=== PATIENT | female | born 2000 | race Caucasian/White ===

== ENCOUNTER → 2018-05-27 | Outpatient (CLI) | payer BC ==
--- NOTE | 2018-05-27 09:59 | Diagnostic Imaging Report ---
INDICATION: Palpable fullness in the outer right breast. Sonographic interrogation of the area of palpable abnormality in the outer right breast was performed. No sonographic abnormality is seen. No solid or cystic mass is detected. IMPRESSION: BI-RADS category one No sonographic abnormality is identified. Continued close clinical and self breast exam is recommended to confirm stability of the palpable abnormality. ACR BI-RADS Category 0: Incomplete. (Needs additional imaging evaluation). Dictated by: Dictated on workstation # [id number]
== END ==
LOC: RAD 08:43
PROVIDERS: ATTEND Registered Nurse
DX: N63.10 Unspecified lump in the right breast, unspecified quadrant (principal)

== ENCOUNTER 2019-11-04 20:31 | Outpatient (CLI) | payer BC ==
[~2019-11-04] VITALS: Ht 170.2 cm; Wt 96.4 kg
--- NOTE | 2019-11-04 20:45 | NUR ---
BAMBI SOLER presented to unit via ambulatory from ED, accompanied by mother, with c/o DECREASED MOVEMENT. BAMBI SOLER weighed, gowned, voided, and to bed. EFHM and TOCO applied, VS taken. BAMBI SOLER oriented to bed controls, call light, TV, heat, and A/C controls. further asesments per this rn.
[2019-11-04 21:00] VITALS: BP 124/74
[2019-11-04 21:11] VITALS: BP 124/74
--- NOTE | 2019-11-04 21:30 | NUR ---
DISCHARGE PACKET GIVEN AND EXPLAINED UNDERSTANDING VOICED, NO SS DISTRESS, PT AMBULATORY OFF UNIT AT THIS TIME ACCOMPANIED BY MOTHER.
--- NOTE | 2019-11-05 08:13 | Physician Query-Final Dx ---
CLIFF ROBERSON 11/05/19 0813: Clinic Account Progress/Dx Physician Query: Please give diagnosis Please include # weeks gestation Date of Service Nov 04, 2019 at 20:31 DILIP GONZALEZ DO 11/05/19 0957: Clinic Account Progress/Dx DIAGNOSIS: Diagnosis 27 week GA Decreased movement; reassuring tracing CLIFF ROBERSON Nov 05, 2019 08:13 DILIP GONZALEZ DO Nov 05, 2019 09:57
== END 2019-11-04 21:30 | disposition home or self-care (01) ==
LOC: LDRP 20:31 → WSo 20:31
PROVIDERS: ATTEND Family Medicine
DX: O36.8121 Decreased fetal movements, second trimester, fetus 1 (principal); Z3A.27 27 weeks gestation of pregnancy
CPT/HCPCS: 99212

== ENCOUNTER 2019-12-28 21:03 | Outpatient (CLI) | payer BC ==
[~2019-12-28] VITALS: Ht 170.2 cm; Wt 101.2 kg
--- NOTE | 2019-12-28 21:10 | NUR ---
BAMBI SOLER presented to unit via from ED, accompanied by family, with c/o VAG BLEEDING 35 0/7 wks . BAMBI SOLER weighed, gowned, voided, and to bed. EFHM and TOCO applied, VS taken. BAMBI SOLER oriented to bed controls, call light, TV, heat, and A/C controls.
[2019-12-28 21:14] VITALS: BP 0/0
[2019-12-28 21:27] LABS: BILIRUBIN,URINE NEGATIVE (NEGATIVE); CLARITY,URINE TURBID; COLOR,URINE YELLOW; GLUCOSE, URINE (UA) NEGATIVE (NEGATIVE); KETONES,URINE NEGATIVE (NEGATIVE); LEUKOCYTE ESTERASE ,URINE 1+ (NEGATIVE); NITRITE,URINE POSITIVE (NEGATIVE); PH,URINE 6.5 (5-9); PROTEIN,URINE NEGATIVE (NEGATIVE)
[2019-12-28 21:32] LABS: BACTERIA,URINE LARGE /HPF; SQUAMOUS EPITHELIAL CELL,UR 0-2 /HPF; WBC,URINE 25-50 /HPF
[2019-12-28] MEDS ORDERED: LIDOCAINE 1% INJ 20 ML 20 ML VIAL ONE (21:52)
[2019-12-28] MEDS ORDERED: cefTRIAXone 1,000 MG/2.86 ml vial (IM ONLY) ONE (21:52)
[2019-12-28] MEDS ORDERED: CETI10TA49 PO (22:01)
[2019-12-28] MEDS ORDERED: PREN-8 PO (22:01)
[2019-12-28 22:08] VITALS: BP 120/77
--- NOTE | 2019-12-28 22:10 | NUR ---
Discharge packet given and explained, understanding voiced, pt changing for dismissal at this time.
--- NOTE | 2019-12-28 22:20 | NUR ---
Pt ambulatory off unit at this time belongings in hand accompanied by mother. no ss distress.
--- NOTE | 2019-12-29 08:33 | Physician Query-Final Dx ---
CLIFF ROBERSON 12/29/19 0833: Clinic Account Progress/Dx Physician Query: Please give diagnosis Please include # weeks gestation Date of Service Dec 28, 2019 at 21:03 DILIP GONZALEZ DO 12/29/19 1538: Clinic Account Progress/Dx DIAGNOSIS: Diagnosis 35 week UTI CLIFF ROBERSON Dec 29, 2019 08:33 DILIP GONZALEZ DO Dec 29, 2019 15:38
[2019-12-29] MEDS ORDERED: LIDOCAINE 1% INJ 20 ML 20 ML VIAL INJ ONE (22:00)
[2019-12-29] MEDS ORDERED: cefTRIAXone 1,000 MG/2.86 ml vial (IM ONLY) IM ONE (22:00)
== END 2019-12-28 22:20 | disposition home or self-care (01) ==
LOC: LDRP 21:03 → WSo 21:03
PROVIDERS: ATTEND Family Medicine
DX: O23.43 Unspecified infection of urinary tract in pregnancy, third trimester (principal); Z3A.35 35 weeks gestation of pregnancy
CPT/HCPCS: 81000; 87077; 87088; 87186; 96372; 99213

== ENCOUNTER 2020-01-29 01:05 | Inpatient (IN) | payer BC ==
[2020-01-29] VITALS (37 sets, daily range): BP systolic 104–144; BP diastolic 52–86
[~2020-01-29] VITALS: Ht 170.2 cm; Wt 101.4 kg
[~2020-01-29 01:05] MED LIST: CETI10TA49 PO; PREN-8 PO
--- NOTE | 2020-01-29 01:10 | NUR ---
BAMBI SOLER presented to unit via AMBULATORY from ED, accompanied by ADULT FEMALE, with c/o CONTRACTIONS. BAMBI SOLER weighed, gowned, voided, and to bed. EFHM and TOCO applied, VS taken. BAMBI SOLER oriented to bed controls, call light, TV, heat, and A/C controls. ABOVE AND FURTHER ASSESSMENTS COMPLETED PER JAMISON SANDERS.
--- NOTE | 2020-01-29 02:21 | NUR ---
Dr. Presley called and updated on pt's SVE, ctx pattern and pain. admit order received.
[2020-01-29] MEDS ORDERED: fentaNYL INJECTION 100 MCG/2 ML AMP ONE ×2 (02:30→04:13)
[2020-01-29] MEDS ORDERED: D5 LR IV SOLUTION 1,000 ML IV SCH (02:30)
[2020-01-29] MEDS ORDERED: fentaNYL INJECTION 100 MCG/2 ML AMP IVP ONE (02:30)
[2020-01-29] MEDS ORDERED: D5 LR IV SOLUTION 1,000 ML IV ONE (02:30)
[2020-01-29] MEDS ORDERED: MINERAL OIL CONCENTRATE 99.9% 15 ML UDC TOP PRN (02:30)
[2020-01-29 02:51] LABS: BASOPHILS % (AUTO) 0 % (0-10); EOSINOPHILS # (AUTO) 0.1 10^3/uL (0.0-0.3); EOSINOPHILS % (AUTO) 1 % (0-10); HEMATOCRIT 34 % (35-52); HEMOGLOBIN 10.5 g/dL (11.5-16.0); LYMPHOCYTES # (AUTO) 1.7 10^3/uL (1.0-4.0); LYMPHOCYTES % (AUTO) 13 % (12-44); MEAN CORPUSCULAR HEMOGLOBIN 27 pg (25-34); MEAN CORPUSCULAR HGB CONC 31 g/dL (32-36); MEAN CORPUSCULAR VOLUME 86 fL (80-99); MONOCYTES # (AUTO) 0.7 10^3/uL (0.0-1.0); MONOCYTES % (AUTO) 5 % (0-12); NEUTROPHILS # (AUTO) 10.8 10^3/uL (1.8-7.8); NEUTROPHILS % (AUTO) 81 % (42-75); PLATELET COUNT 316 10^3/uL (130-400); WHITE BLOOD COUNT 13.4 10^3/uL (4.3-11.0)
--- NOTE | 2020-01-29 03:20 | NUR ---
covid swab obtained and sent to lab.
--- NOTE | 2020-01-29 03:28 | NUR ---
report to dinora johnston.
[2020-01-29] MEDS ORDERED: fentaNYL 2 mcg/ml BUPIVA 0.125 100 ML ONE (04:08)
[2020-01-29] MEDS ORDERED: BUPIVACAINE 0.25% 30 ML (SENSORCAINE) VIAL ONE (04:13)
[2020-01-29] MEDS ORDERED: LACTATED RINGERS 1,000 ML IV ONE (04:30)
[2020-01-29] MEDS ORDERED: CATHETER FLUSH 10 ML SYR IV PRN (04:30)
[2020-01-29] MEDS ORDERED: NALOXONE 0.4 MG/ML 1 ML (NARCAN) VIAL IV PRN (04:30)
[2020-01-29] MEDS ORDERED: fentaNYL 2 mcg/ml BUPIVA 0.125 100 ML IV SCH (04:30)
[2020-01-29] MEDS ORDERED: CATHETER FLUSH 10 ML SYR IV SCH ×2 (06:00→14:00)
--- NOTE | 2020-01-29 08:15 | History & Physical-OB ---
OB - Chief Complaint & HPI Date/Time Date of Admission: Date of Admission: Jan 29, 2020 at 02:26 Date seen by a Provider: Jan 29, 2020 Time Seen by a Provider: 07:55 Chief Complaint/History OB-Reason for Admission/Chief: Onset of Labor Hx : 1 Hx Para: 0 Expected Date of Delivery: Feb 01, 2020 Gestational Age in Weeks: 39 Gestational Age in Days: 4 History of Labs A+, Ab neg, Rub Imm, HIV/RPR/HepB NR, 1 hr GTT, GBS Neg Allergies and Home Medications Allergies Coded Allergies: Penicillins (Verified Allergy, Mild, 01/29/20) Home Medications Cetirizine HCl 10 Mg Tablet, 10 MG PO BID PRN, (Reported) Vit W-Ca,Fe,FA(<1 mg) 1 Each Tablet, 1 EACH PO DAILY, (Reported) Patient Home Medication List Home Medication List Reviewed: Yes OB - History Hx of Present Care: Yes Ultrasounds: No ultrasounds Obstetrical Complications: None Medical Complications: None Obstetrical History Hx : 1 Hx Para: 0 Patient Past Medical History None Social History/Family History HIV/AIDS: No Recent Infectious Disease Expo: No Sexually Transmitted Disease: No Alcohol Use: Denies Use Recreational Drug Use: No 2nd Hand Smoke Exposure: No Immunizations Tetanus Booster (TDap): Less than 5yrs Date of Influenza Vaccine: Nov 27, 2019 Rubella: immune RPR/VDRL: Negative GBS Status: Negative HBsAG: Negative OB - Admission Exam Physical Exam Vitals: Vital Signs 01/29/20 01/29/20 01/29/20 01/29/20 01:20 04:20 04:40 07:00 Temp 36.4 Pulse 91 Resp 18 B/P (MAP) 121/57 (78) Pulse Ox 98 O2 Delivery Room Air HEENT: NCAT Heart: Rhythm Normal Lungs: Clear Abdomen: Gravid Extremities: Normal Reflexes: Normal Cervical Dilatation: 9cm Effacement: 100% Station: +1 Membranes: Intact Heart Rate: 140's Accelerations: Accelerations Present Short Term Variability: Present Dean Of Instruction Variability: Average (6-25) Contractions on Admission: < 5 Minutes Apart Intensity: Firm Labs Laboratory Tests Test 01/29/20 02:35 01/29/20 03:20 Range/Units White Blood Count 13.4 H 4.3-11.0 10^3/uL Red Blood Count 3.92 3.80-5.11 10^6/uL Hemoglobin 10.5 L 11.5-16.0 g/dL Hematocrit 34 L 35-52 % Mean Corpuscular Volume 86 80-99 fL Mean Corpuscular Hemoglobin 27 25-34 pg Mean Corpuscular Hemoglobin Concent 31 L 32-36 g/dL Red Cell Distribution Width 14.6 H 10.0-14.5 % Platelet Count 316 130-400 10^3/uL Mean Platelet Volume 10.0 9.0-12.2 fL Immature Granulocyte % (Auto) 0 % Neutrophils (%) (Auto) 81 H 42-75 % Lymphocytes (%) (Auto) 13 12-44 % Monocytes (%) (Auto) 5 0-12 % Eosinophils (%) (Auto) 1 0-10 % Basophils (%) (Auto) 0 0-10 % Neutrophils # (Auto) 10.8 H 1.8-7.8 10^3/uL Lymphocytes # (Auto) 1.7 1.0-4.0 10^3/uL Monocytes # (Auto) 0.7 0.0-1.0 10^3/uL Eosinophils # (Auto) 0.1 0.0-0.3 10^3/uL Basophils # (Auto) 0.0 0.0-0.1 10^3/uL Immature Granulocyte # (Auto) 0.1 0.0-0.1 10^3/uL OB - Assessment/Plan/Diagnosis Assessment Assessment: active labor Admission Dx Active Labor 39 week Gestation Third Trimester Admission Status: Inpatient Order (span 2 midnights) Reason for Inpatient Admission: Labor Plan Plan: Expectant Management Other Plan 19 yo G1 @ 39.3 wga here in active labor Plan - Expectant Management - AROM Clear 0800 - Epidural for pain control - GBS Neg JULISSA ARMENDARIZ MD Jan 29, 2020 08:15
[2020-01-29] MEDS ORDERED: LIDOCAINE 1% INJ 20 ML 20 ML VIAL ONE (08:42)
[2020-01-29] MEDS ORDERED: OXYTOCIN PRE-MIX DRIP 500 ML IV ONE ×2 (08:56→10:03)
--- NOTE | 2020-01-29 10:22 | OB Labor & Delivery Record ---
Vag Delivery Note Vag Delivery Note Date of Delivery: 01/29/20 Preoperative Diagnosis: Irma Davis is a (19 /Para 1 / 0,Gestational Age (wks)39.3 wga here in active labor Postoperative Diagnosis: Same Surgeon: JULISSA ARMENDARIZ Health Workers: Steve Matute MS3 Anesthesia: Epidural Delivery Type: @0924 Findings: Viable female infant, apgars 8/9, weight 7#2, 3220 grams Lacerations: 2nd degree laceration Intact placenta with 3 vessel cord. No nuchal cord, body cord or shoulder dystocia Estimated Blood Loss: 125 ml Complications: None Condition: Stable Description of Procedure: The patient is a 19 year old female who presented in active labor. She was admitted and informed consent was obtained. Her labor course was unremarkable. She progressed to complete dilatation and began to push. She was then set up for delivery. The infant's head was delivered atraumatically in the ANY position. The shoulders and remainder of the infant's body were then delivered without difficulty. Upon delivery, the head was held below the level of the perineum and the mouth and nares were bulb suctioned. The cord was doubly clamped and cut after 4 min delay and the was attended to by the pediatric staff. An intact placenta with 3-vessel cord delivered via Daryn and there was found to be minimal bleeding.~ Vigorous fundal massage was performed and the fundus was found to be firm. IV oxytocin was given. Examination of the vagina and perineum revealed a 2nd laceration repaired in the usual fashion with 3-0 Rapid suture. Following the repair, sponge, instrument and needle counts were correct. Mom and baby were both in stable condition in the labor suite. Vitals - Labs Vital Signs - I&O Vital Signs Date Time Temp Pulse Resp B/P (MAP) Pulse Ox O2 Delivery O2 Flow Rate FiO2 01/29/20 07:00 91 121/57 (78) 98 01/29/20 06:45 95 112/60 (77) 97 01/29/20 06:30 81 107/58 (74) 97 01/29/20 06:15 87 112/59 (76) 97 01/29/20 06:00 84 114/64 (81) 97 01/29/20 05:45 81 116/62 (80) 97 01/29/20 05:30 86 118/60 (79) 97 01/29/20 05:15 80 119/57 (77) 98 01/29/20 05:00 86 125/74 (91) 97 01/29/20 04:53 85 117/57 (77) 98 01/29/20 04:48 82 121/58 (79) 98 01/29/20 04:45 01/29/20 04:43 88 126/59 (81) 97 01/29/20 04:40 36.4 87 127/59 (81) 98 01/29/20 04:34 93 131/71 (91) 97 01/29/20 04:30 97 137/78 (97) 99 01/29/20 04:20 98 18 136/86 (103) 98 01/29/20 01:20 36.8 96 20 99 Room Air I & O 01/29/20 07:00 Intake Total 1000 ml Balance 1000 ml Labs Laboratory Tests 01/29/20 02:35: White Blood Count 13.4H, Red Blood Count 3.92, Hemoglobin 10.5L, Hematocrit 34L, Mean Corpuscular Volume 86, Mean Corpuscular Hemoglobin 27, Mean Corpuscular Hemoglobin Concent 31L, Red Cell Distribution Width 14.6H, Platelet Count 316, Mean Platelet Volume 10.0, Immature Granulocyte % (Auto) 0, Neutrophils (%) (Aut o) 81H, Lymphocytes (%) (Auto) 13, Monocytes (%) (Auto) 5, Eosinophils (%) (Auto) 1, Basophils (%) (Auto) 0, Neutrophils # (Auto) 10.8H, Lymphocytes # (Auto) 1.7, Monocytes # (Auto) 0.7, Eosinophils # (Auto) 0.1, Basophils # (Auto) 0.0, Immature Granulocyte # (Auto) 0.1 01/29/20 03:20: JULISSA ARMENDARIZ MD Jan 29, 2020 10:22
[2020-01-29] MEDS ORDERED: WITCH HAZEL(TUCKS) 40 EA JAR TOP PRN (10:30)
[2020-01-29] MEDS ORDERED: BENZOCAINE/MENTHOL (DERMOPLAST) 60 ML CAN TP PRN (10:30)
--- NOTE | 2020-01-29 12:30 | NUR ---
Pt up to bathroom. Had small void. +massiel care, new gown, panties and liner applied. Pt to wheelchair. Belongings gathered. Scheduled med given.
[2020-01-29] MEDS: IBUPROFEN 600 MG (MOTRIN) TAB PO SCH ×3 (12:37→23:49)
--- NOTE | 2020-01-29 12:55 | NUR ---
Pt transferred from ws-320 to ws-309 via wheel chair in stable condition accompanied by this rn, infant, belongings and grandmother of baby. Pt oriented to room. packet oriented to pt. Pt verbalizes understanding. Fresh ice water given. No further needs at this time.
[2020-01-29] MEDS: OXYTOCIN PRE-MIX DRIP 500 ML IV SCH ×2 (13:05→13:06)
--- NOTE | 2020-01-29 15:35 | NUR ---
Vital signs taken. Scheduled meds given. Pt up to bathroom, states having no pain. No further needs at this time.
[2020-01-29] MEDS: ACETAMINOPHEN 500 MG TAB (TYLENOL) PO SCH ×2 (15:40→20:50)
--- NOTE | 2020-01-29 19:38 | NUR ---
RN to room for assessment. VSS. Pt denies passing any clots and has minimal bleeding, reports no pain. Pt denies any needs or concerns at this time
[2020-01-29] MEDS: DOCUSATE SODIUM 100 MG (COLACE) CAP PO SCH (20:50)
[2020-01-30 03:55] VITALS: BP 97/54
[2020-01-30] MEDS: IBUPROFEN 600 MG (MOTRIN) TAB PO SCH ×2 (06:01→12:36)
--- NOTE | 2020-01-30 06:49 | Anesthesia-Regional Post-Op ---
Regional Patient Condition Mental Status: Alert, Oriented x3 Circulation: Same as Pre-Op Headache: Absent Sensation: Full Recovery Motor Block: Absent Post Op Complications Complications None Follow Up Care/Instructions Patient Instructions None needed. Anesthesia/Patient Condition Patient is doing well, no complaints, stable vital signs, no apparent adverse anesthesia problems. No complications reported per nursing. D/C home per [facility] Criteria: No CARLY REDDY CRNA Jan 30, 2020 06:49
[2020-01-30 06:58] LABS: BASOPHILS % (AUTO) 0 % (0-10); EOSINOPHILS # (AUTO) 0.1 10^3/uL (0.0-0.3); EOSINOPHILS % (AUTO) 1 % (0-10); HEMATOCRIT 31 % (35-52); HEMOGLOBIN 9.2 g/dL (11.5-16.0); LYMPHOCYTES # (AUTO) 2.2 10^3/uL (1.0-4.0); LYMPHOCYTES % (AUTO) 22 % (12-44); MEAN CORPUSCULAR HEMOGLOBIN 27 pg (25-34); MEAN CORPUSCULAR HGB CONC 30 g/dL (32-36); MEAN CORPUSCULAR VOLUME 90 fL (80-99); MEAN PLATELET VOLUME 10.1 fL (9.0-12.2); MONOCYTES # (AUTO) 0.6 10^3/uL (0.0-1.0); MONOCYTES % (AUTO) 6 % (0-12); NEUTROPHILS # (AUTO) 6.8 10^3/uL (1.8-7.8); NEUTROPHILS % (AUTO) 70 % (42-75); PLATELET COUNT 245 10^3/uL (130-400); WHITE BLOOD COUNT 9.8 10^3/uL (4.3-11.0)
[2020-01-30 09:06] VITALS: BP 109/71
[2020-01-30] MEDS: DOCUSATE SODIUM 100 MG (COLACE) CAP PO SCH (09:06)
--- NOTE | 2020-01-30 09:10 | NUR ---
Scheduled meds given, vitals taken, IV removed. Tip intact.
--- NOTE | 2020-01-30 12:21 | Short Stay Summary ---
Discharge Summary Hospital Course Problems/Dx: (1) Status post vaginal delivery Assessment & Plan: at 39w3d following DANTE 2nd degree laceration repair Routine post- course. Final Diagnosis: see Problem List Hospital Course Date of Admission: Jan 29, 2020 at 02:26 Date of Discharge: 01/30/20 Labs and Pending Lab Test: Laboratory Tests 01/30/20 06:15: White Blood Count 9.8, Red Blood Count 3.44L, Hemoglobin 9.2L, Hematocrit 31L, Mean Corpuscular Volume 90, Mean Corpuscular Hemoglobin 27, Mean Corpuscular Hemoglobin Concent 30L, Red Cell Distribution Width 14.8H, Platelet Count 245, Mean Platelet Volume 10.1, Immature Granulocyte % (Auto) 1, Neutrophils (%) (Auto) 70, Lymphocytes (%) (Auto) 22, Monocytes (%) (Auto) 6, Eosinophils (%) (Auto) 1, Basophils (%) (Auto) 0, Neutrophils # (Auto) 6.8, Lymphocytes # (Auto) 2.2, Monocytes # (Auto) 0.6, Eosinophils # (Auto) 0.1, Basophils # (Auto) 0.0, Immature Granulocyte # (Auto) 0.1 Home Meds Active Reported Zyrtec (Cetirizine HCl) 10 Mg Tablet 10 Mg PO BID PRN Formula ( Vit W-Ca,Fe,FA(<1 mg)) 1 Each Tablet 1 Each PO DAILY Assessment/Pt Instructions follow-up with Dr. Lopez in 6wk Discharge Instructions Discharge Diet: No Restrictions Discharge Physical Examination General Appearance: Alert, Oriented X3, Cooperative Psych/Mental Status: Mood NL Allergies: Coded Allergies: Penicillins (Verified Allergy, Mild, 01/29/20) Discharge Summary Date of Admission Jan 29, 2020 at 02:26 Date of Discharge Clinical Quality Measures DVT/VTE Risk/Contraindication: Risk Factor Score Per Nursin RFS Level Per Nursing on Admit: 1=Low/No VTE PPX DILIP GONZALEZ DO Jan 30, 2020 12:21
[2020-01-30] MEDS ORDERED: TETANUS,DIPTH,PERTUSS P/F (BOOSTRIX) 0.5 ML VIAL IM ONE (13:00)
[2020-01-30] MEDS ORDERED: MEASLES,MUMPS,RUBELLA 1 EA INJ SQ ONE (13:00)
--- NOTE | 2020-01-30 13:35 | NUR ---
Discharge instructions given to pt. Appointment card and PHS given to pt. Pt verbalizes understanding. Pt signs that discharge instructions were given. No further needs at this time.
--- NOTE | 2020-01-30 13:50 | NUR ---
Pt discharged from unit in stable condition via ambulatory accompanied by this rn, pts mother, and infant.
== END 2020-01-30 13:50 | disposition home or self-care (01) | DRG 807 ==
LOC: WSo 01:05 → LDRP 01:06 → WSo 02:25 → LDRP 02:26
PROVIDERS: ADMIT Family Medicine; ATTEND Family Medicine
PROC: 10E0XZZ Delivery of Products of Conception, External Approach (ICD-10-PCS; principal; 2020-01-29)
PROC: 0KQM0ZZ Repair Perineum Muscle, Open Approach (ICD-10-PCS; 2020-01-29)
PROC: 10907ZC Drainage of Amniotic Fluid, Therapeutic from Products of Conception, Via Natural or Artificial Opening (ICD-10-PCS; 2020-01-29)
DX: O80 Encounter for full-term uncomplicated delivery (principal); Z37.0 Single live birth; O70.1 Second degree perineal laceration during delivery; Z3A.39 39 weeks gestation of pregnancy; Z20.828 Contact with and (suspected) exposure to other viral communicable diseases
CPT/HCPCS: 36415; 85025; 85027; 86850; 86900; 86901; 87635; 90707; 90715; 99212